=== PATIENT | male | born 1950 | race Caucasian/White ===

== ENCOUNTER 2019-07-21 16:34 | Emergency (ER) | payer OTHER, MEDICAID ==
[~2019-07-21] VITALS: Ht 177.8 cm; Wt 74.8 kg
[2019-07-21 16:57] VITALS: BP_SYST 123
[2019-07-21 19:11] LABS: BASOPHILS % (AUTO) 0.5 % (0.0-2.0); EOSINOPHILS % (AUTO) 1.9 % (0.0-4.0); HEMATOCRIT 37.4 % (36-54); HEMOGLOBIN 12.7 g/dL (14.0-18.0); LYMPHOCYTES # (AUTO) 0.7 K/uL (1.0-5.5); MEAN CORPUSCULAR HEMOGLOBIN 30 pg (27-31); MEAN CORPUSCULAR HGB CONC 34 % (32-36); MEAN CORPUSCULAR VOLUME 89 fL (79.0-98.0); MONOCYTES % (AUTO) 4.8 % (1.7-9.3); NEUTROPHILS # (AUTO) 3.1 K/uL (1.8-7.7); NEUTROPHILS % (AUTO) 74.8 % (40.0-70.0); PLATELET COUNT (AUTO) 136 K/uL (130-430); RED CELL DISTRIBUTION WIDTH 14.2 % (9.0-15.0); WHITE BLOOD COUNT (AUTO) 4.1 K/uL (4.8-10.8)
[2019-07-21 19:12] LABS: EOSINOPHILS # (AUTO) 0.1 K/uL (0.0-0.4); MONOCYTES # (AUTO) 0.2 K/uL (0.0-1.0)
[2019-07-21 20:06] LABS: BARBITURATE, URINE NEGATIVE (NEG <=200); BENZODIAZEPINE, URINE NEGATIVE (NEG <=150); CANNABINOID, URINE NEGATIVE (NEG <=50); COCAINE, URINE NEGATIVE (NEG <=150); METHAMPHETAMINES SCREEN,URINE NEGATIVE (NEG <=500); OPIATE, URINE NEGATIVE (NEG <=100); PHENCYCLIDINE SCREEN,URINE NEGATIVE (NEG <=25); UR TRICYCLIC ANTIDEPRESSANTS NEGATIVE (NEG <=300); URINE AMPHETAMINE NEGATIVE (NEG <=500); URINE METHADONE NEGATIVE (NEG <=200); URINE OXYCODONE SCREEN NEGATIVE (NEG <=100); URINE PROPOXYPHENE SCREEN NEGATIVE (NEG <=300)
[2019-07-21 21:24] LABS: ANION GAP 9 (5-15); CHLORIDE 103 mmol/L (98-107); POTASSIUM 3.5 mmol/L (3.5-5.1); SODIUM SERUM 138 mmol/L (136-145)
[2019-07-21 21:26] LABS: CALCIUM 9.1 mg/dL (8.4-11.0); GLUCOSE 108 mg/dL (70-99); UREA NITROGEN, BLOOD 24 mg/dL (8-21)
[2019-07-21 21:27] LABS: ASPARTATE AMINOTRANSFERASE 20 U/L (10-37); CREATININE 0.98 mg/dL (0.55-1.30); GFR AFRICAN AMERICAN 97 mL/min (>90); TOTAL BILIRUBIN 0.7 mg/dL (0.0-1.0)
[2019-07-21 21:28] LABS: ALANINE AMINOTRANSFERASE 25 U/L (12-78)
[2019-07-21 21:31] LABS: ACETAMINOPHEN < 1 ug/mL (1-30)
[2019-07-21 21:32] LABS: ALCOHOL, BLOOD < 3 mg/dL (<10)
[2019-07-21 22:50] VITALS: BP_SYST 137
[2019-07-22 13:09] LABS: THYROID STIMULATING HORMONE 4.69 uIu/mL (0.36-3.74)
== END 2019-07-21 22:50 ==
LOC: SED 16:34
DX: F98.9 Unspecified behavioral and emotional disorders with onset usually occurring in childhood and adolescence (principal); R45.1 Restlessness and agitation; K21.9 Gastro-esophageal reflux disease without esophagitis; E07.9 Disorder of thyroid, unspecified; N40.0 Benign prostatic hyperplasia without lower urinary tract symptoms; F31.9 Bipolar disorder, unspecified; F20.9 Schizophrenia, unspecified; E78.5 Hyperlipidemia, unspecified
CPT/HCPCS: 36415; 80053; 80061; 80307; 81002; 83036; 84443; 84484; 85025; 93005; 99285; G0480; G0481; G0482